=== PATIENT | male | born 1955 | race Caucasian/White ===

== ENCOUNTER → 2019-07-21 | Outpatient (CLI) | payer BC, OTHER ==
--- NOTE | 2019-07-23 15:07 | CT ---
Procedure: CT LUNG SCREENING Exam Date: 07/21/2019 Ordering Provider: Kwaem Hensley Clinical Indication: PERSONAL HISTORY OF TOBACCO USE . Smoking cessation 3.5 years. 8 pack year history. This patient meets eligibility criteria for low-dose CT lung cancer screening. Comparison: None. Technique: Using a multislice scanner, sequential helical axial imaging was obtained in the thorax, 2.5 mm thickness, 2.5 mm separation, from the level of the thoracic inlet through the lung bases without IV contrast. A low dose protocol was utilized for BMI more than 30: BMI: 44.1. CTDI: 2.93 mGy. 120. kVp. 45 mA. DLP: 106.40 mGy-centimeters. 2D sagittal and coronal reconstructed images, 6.0 mm thickness, were obtained. This exam was performed according to our departmental dose optimization program which includes use of automated exposure control, adjustment of the mA and/or kV according to patient size and/or use of iterative reconstruction technique. Nodule measurements under 10 mm are given as mean value of 3 axes diameters. Decreased sensitivity due to patient large body habitus. FINDINGS: Lungs and large airways: 4.4 mm pleural nodule or subpleural nodule on axial series 2, image 87 abutting the left lower lobe laterally. Pleural parenchymal scarring in the lingula, bilateral upper lobes and right lower lobe. Pleura and space: Bilateral foci of pleural thickening but no effusion or pneumothorax. Mediastinum and luis: evaluation limited by low dose technique, patient body habitus, and lack of IV contrast. No enlarged nodes. Heart and great vessels: Tortuosity of the origin of the right innominate artery. Atherosclerotic calcification in the aortic arch. Chest wall, lower neck, axillae: Evaluation also limited by same factors as described above. Small nodes right axilla. Left side of the body was contacting the CT gantry and nondiagnostic. Upper abdomen: Evaluation limited by low-dose technique. Nondiagnostic. Osseous structures: Evaluation limited by low dose MIP technique. Diffuse spondylosis. Unable to evaluate other osseous structures. IMPRESSION: 1. Limited study due to large patient body habitus. 4.4 mm pleural nodule versus solid subpleural nodule abutting the lateral left lower lobe. Bilateral scattered regions of pleural thickening. [facility] Best Practice recommendations: Please see below for Lung RADS category and FOLLOW-UP.* *Lung RADS category CATEGORY 2- Nodules with a very low likelihood (less than 1%) of becoming a clinically active cancer due to size or lack of growth. Nodules: Perifissural nodule(s) < 10 mm. (526mm3). Solid or part solid nodule(s) less than 6mm (113.1 mm3), new solid nodule less than 4mm (33.5 mm3). Ground glass nodule(s) less than 30mm (16983.2 mm3) or unchanged or slow growing ground glass nodule 30mm or greater. Cat 3 or 4 nodule unchanged for 3 or more months. FOLLOW-UP: Continue annual screening with a Low Dose Chest CT in 12 months for re-evaluation. Electronically signed by: Malick Fox MD 07/23/2019 3:05 PM CDT
== END ==
LOC: CT 13:30
PROVIDERS: ATTEND Family Medicine
DX: Z87.891 Personal history of nicotine dependence (principal); R91.8 Other nonspecific abnormal finding of lung field